=== PATIENT | male | born 1965 | race Caucasian/White ===

== ENCOUNTER 2017-03-16 05:45 | Emergency (ER) | payer MEDICARE, OTHER ==
--- NOTE | 2017-03-16 05:50 | ED.PDOC ---
History of Present Illness - General Chief Complaint: Lower Extremity Injury Stated Complaint: foot pain right Time Seen by Provider: 03/16/17 05:46 Source: patient Exam Limitations: no limitations - History of Present Illness Initial Comments: Julian Castano 51 y/o male stated he been having worsening sharp right foot pain for the last 5 days denies trauma to foot but has history of gout and never had recurrence the last 3 years until 5 days ago. Occurred: other - see hpi Pain - Lower Extremity: moderate: Right Foot Method of Injury: unknown Improving Factors: nothing Worsening Factors: movement Associated Symptoms: pain /swelling right foot Allergies/Adverse Reactions: Allergies Penicillins Allergy (Unverified 05/08/12 14:40) Home Medications: Ambulatory Orders Colchicine 0.6 mg PO BID #14 tab 03/16/17 Prednisone 10 mg PO BID #20 ml 03/16/17 Review of Systems - Review of Systems Constitutional: States: no symptoms reported EENTM: States: no symptoms reported Respiratory: States: no symptoms reported Cardiology: States: no symptoms reported Gastrointestinal/Abdominal: States: no symptoms reported Musculoskeletal: States: see HPI Past Medical History (General) - Patient Medical History Hx Hypertension: Yes Hx Other PMH: Yes - gout Family Medical History - Family History Mother Family History: Unknown Physical Exam - Physical Exam General Appearance: Alert, Anxious, No apparent distress Eyes, Ears, Nose, Throat: normal ENT inspection, pharynx normal Neck: full range of motion, supple Cardiovascular/Respiratory: regular rate, rhythm, no M/R/G, normal peripheral pulses, normal breath sounds Gastrointestinal/Abdominal: non-tender, no organomegaly Back: no vertebral tenderness Leg: no evidence of injury Knee: no evidence of injury Ankle: no evidence of injury Foot: limited ROM, soft tissue tenderness - right foot, swelling - right foot Mental Status: alert, oriented x 3 Skin: normal color, warm/dry Progress - Progress Progress: 03/16/17 06:32 Vital Signs - 8 hr 03/16/17 06:17 Temperature 97.8 F Pulse Rate [ 74 left] Respiratory 18 Rate Blood Pressure 186/115 [left] O2 Sat by Pulse 100 Oximetry - EKG/XRAY/CT XRAY: right foot no fracture Departure - Departure Clinical Impression: Right foot pain, Foot swelling, History of acute gouty arthritis Time of Disposition: 06:52 Disposition: Discharge to Home or Self Care Condition: Good Departure Forms: ED Discharge - Pt. Copy, Patient Portal Self Enrollment Instructions: DI for Gout, Gout, Gout (Alternative Therapy) Referrals: ALEXANDREA YAP [Primary Care Provider] - 1-2 Weeks Prescriptions: Colchicine 0.6 mg PO BID #14 tab Prednisone 10 mg PO BID #20 ml Home Medications: Ambulatory Orders Colchicine 0.6 mg PO BID #14 tab 03/16/17 Prednisone 10 mg PO BID #20 ml 03/16/17 Additional Instructions: Follow up with primary md 03/19/2017 you call for appointment Return to emergency room as needed
[2017-03-16] MEDS ORDERED: DEXAMETHASONE INJ 4 MG/ML VIAL IM ONE (06:03)
[2017-03-16] MEDS ORDERED: KETOROLAC TROMETHAMINE INJ 30 MG/ML VIAL IM ONE (06:03)
[2017-03-16] MEDS ORDERED: HYDROcodone 7.5MG/APAP 325MG 1 EA TAB PO ONE (06:03)
[2017-03-16] MEDS ORDERED: predniSONE 20 MG TAB PO ONE (06:03)
[2017-03-16 06:22] VITALS: BP 186/115; TEMP 97.8; O2SAT 100
[2017-03-16] MEDS ORDERED: HYDROCOD/APAP 7.5/325 (ER DISP) #3 TAB PO ONE (06:49)
--- NOTE | 2017-03-16 07:47 | RAD ---
EXAM DESCRIPTION: Foot,Right 2 Views CLINICAL HISTORY: 51 years Male, pain COMPARISON: None. FINDINGS: 2 views of the right foot were obtained. Diffuse soft tissue swelling is noted without radiopaque foreign body or soft tissue gas. No displaced fracture or malalignment. No focal bone lesion. IMPRESSION: Diffuse soft tissue swelling, otherwise unremarkable exam. If symptoms persist or worsen, 3 view right foot series is recommended. Electronically signed by: Sarwat Morel MD 03/16/2017 7:46 AM CDT
== END 2017-03-16 07:45 | disposition home or self-care (01) ==
LOC: ER 05:45
DX: M79.671 Pain in right foot (principal); M10.9 Gout, unspecified; Z88.0 Allergy status to penicillin
CPT/HCPCS: 73620; J1100; J1885; J7512

== ENCOUNTER → 2017-04-26 | Outpatient (CLI) | payer OTHER | END | disposition home or self-care (01) | LOC: LAB.O 08:52 | PROVIDERS: ATTEND General Practice | DX: M10.1 Lead-induced gout (principal); R06.00 Dyspnea, unspecified; I10 Essential (primary) hypertension ==

== ENCOUNTER → 2017-11-01 | Outpatient (CLI) | payer MEDICARE, OTHER | LOC: LAB.O 08:06 | PROVIDERS: ATTEND General Practice | DX: M10.9 Gout, unspecified (principal); I12.9 Hypertensive chronic kidney disease with stage 1 through stage 4 chronic kidney disease, or unspecified chronic kidney disease; N18.3 Chronic kidney disease, stage 3 (moderate); I25.10 Atherosclerotic heart disease of native coronary artery without angina pectoris; E66.01 Morbid (severe) obesity due to excess calories ==

== ENCOUNTER → 2017-11-09 | Outpatient (CLI) | payer MEDICARE, OTHER ==
--- NOTE | 2017-11-11 09:11 | US ---
EXAM DESCRIPTION: Renal: Ultrasound. CLINICAL HISTORY: Acute kidney failure COMPARISON: Bilateral renal arterial Doppler evaluation on the same visit. TECHNIQUE: Transcutaneous scanning: Two-dimensional and Doppler modes. FINDINGS: Right kidney measures 9.2 x 4.1 x 3.9 cm; mid-renal cortical thickness 12 mm. . Normal echogenicity. No hydronephrosis No echogenic stones. Minimally lobulated contour of the kidney with no perinephric fluid. Normal vascularity. Proximal ureter not visualized. Left kidney measures 10.3 x 4.4 x 4.5 cm; mid-renal cortical thickness 13 mm.. echogenicity. No hydronephrosis. No echogenic stones. Minimally lobulated contour of the kidney with no perinephric fluid. Normal vascularity.. Proximal ureter not visualized. visualized. Urinary bladder not visualized. Abdominal aorta diameter not measured. IMPRESSION: Bilateral kidneys with thin cortex, capsular lobulations, but normal echogenicity. This could be consistent with clinical diagnosis. No hydronephrosis or perinephric fluid. No large echogenic stones. Ureters were not visualized. Electronically signed by: Augustine Wong MD 11/11/2017 9:09 AM CDT
== END ==
LOC: LAB.O 09:01
PROVIDERS: ATTEND Internal Medicine Nephrology
DX: N18.4 Chronic kidney disease, stage 4 (severe) (principal)

== ENCOUNTER 2018-07-09 02:14 | Emergency (ER) | payer MEDICARE, OTHER ==
[2018-07-09 02:30] VITALS: TEMP 97.1
[2018-07-09] MEDS ORDERED: ONDANSETRON INJ 4 MG/2 ML VIAL IV ONE (02:34)
--- NOTE | 2018-07-09 02:41 | ED.PDOC ---
History of Present Illness - General Chief Complaint: GI Problem Stated Complaint: vomiting,diarrhea, chest pain Time Seen by Provider: 07/09/18 02:28 Source: patient Exam Limitations: no limitations - History of Present Illness Initial Comments: Patient presents complaining of N/V/D since last evening about 9 huors ago. He said he had a little diarrhea first, the N/V started quite frequently. His diarrhea has increased in frequency. He has "cramping" abdominal pain that gets better just after vomiting or having a bowel movement. The diarrhea is non- bloody. The patient is unable to hold down fluids at this time. His [id number], whom he says that he sees every day, has the same symptoms. No other complaints. Timing/Duration: other - 9 hours Severity: moderate Improving Factors: nothing Worsening Factors: eating Associated Symptoms: other - as in HPI Allergies/Adverse Reactions: Allergies Penicillins Allergy (Unverified 05/08/12 14:40) Home Medications: Ambulatory Orders Carvedilol 07/09/18 Hydrocodone-Acetaminophen [Hydrocodone Bitartrate/AC 10-325 mg] 1 tab PO 07/09/18 Lisinopril 07/09/18 Ondansetron [Zofran Odt] 4 mg PO Q6HRS #12 tab 07/09/18 Sertraline HCl 07/09/18 Review of Systems - Review of Systems Constitutional: States: no symptoms reported EENTM: States: no symptoms reported Respiratory: States: no symptoms reported Cardiology: States: no symptoms reported Gastrointestinal/Abdominal: States: see HPI Genitourinary: States: no symptoms reported Musculoskeletal: States: no symptoms reported Skin: States: no symptoms reported Neurological: States: no symptoms reported Endocrine: States: no symptoms reported Hematologic/Lymphatic: States: no symptoms reported Past Medical History (General) - Patient Medical History Hx Asthma: Yes Hx Cardiac Disorders: No Hx Hypertension: Yes Hx Diabetes: No Hx Renal Disease: - PCP "testing kidneys" Hx MRSA: Yes - gout - Vaccination History Hx Tetanus, Diphtheria Vaccination: No Hx Influenza Vaccination: No Hx Pneumococcal Vaccination: No - Social History Hx Tobacco Use: Yes Hx Alcohol Use: No Family Medical History - Family History Mother Family History: Unknown Physical Exam - Physical Exam General Appearance: Alert Eye Exam: bilateral normal Ears, Nose, Throat: normal ENT inspection Neck: non-tender, full range of motion, supple Respiratory: lungs clear, normal breath sounds Cardiovascular/Chest: normal peripheral pulses, regular rate, rhythm Gastrointestinal/Abdominal: normal bowel sounds, non tender, soft, no organomegaly Back Exam: no CVA tenderness Neurologic: alert, normal mood/affect, oriented x 3 Skin Exam: normal color Lymphatic: no adenopathy Progress - Progress Progress: 07/09/18 06:30 Patient's N/V resolved after Zofran IV. His systolic blood pressure was 222 upon arrival and was treated with clonidine 0.1 mg po x two doses. He said that he had an appointment with Dr. Keller regarding his "kidneys" and possible blood pressure issues. He was sent with RX for Zofran. E.R. warnings given. Care instructions given. Questions were elicited and answered. The patient voiced understanding and agreement with the plan. Departure - Departure Clinical Impression: Nausea & vomiting, Gastroenteritis Disposition: Discharge to Home or Self Care Condition: Good Departure Forms: ED Discharge - Pt. Copy, Patient Portal Self Enrollment Instructions: Viral Gastroenteritis, Adult (DC) Diet: resume usual diet, other - increase oral fluids Activity: increase activity as tolerated Referrals: Wilfrido Santoyo MD [Primary Care Provider] - 1-2 Weeks Prescriptions: Ondansetron [Zofran Odt] 4 mg PO Q6HRS #12 tab Home Medications: Ambulatory Orders Carvedilol 07/09/18 Hydrocodone-Acetaminophen [Hydrocodone Bitartrate/AC 10-325 mg] 1 tab PO 07/09/18 Lisinopril 07/09/18 Ondansetron [Zofran Odt] 4 mg PO Q6HRS #12 tab 07/09/18 Sertraline HCl 07/09/18 Additional Instructions: Increase oral fluids. Take medication as prescribed for nausea and vomiting. You may try Immodium A-D as directed for diarrhea. Return to your normal diet as tolerated. Return to the E.R. for symptoms that last more than 72 hours or for increasing abdominal pain.
[2018-07-09] MEDS ORDERED: cloNIDine HCL 0.1 MG TAB ONE (03:34)
[2018-07-09] MEDS ORDERED: cloNIDine HCL 0.1 MG TAB PO ONE ×2 (03:35→04:13)
[2018-07-09 06:45] VITALS: BP 186/124; O2SAT 98
== END 2018-07-09 06:45 | disposition home or self-care (01) ==
LOC: ER 02:14
DX: K52.9 Noninfective gastroenteritis and colitis, unspecified (principal); J45.909 Unspecified asthma, uncomplicated; I10 Essential (primary) hypertension; Z87.891 Personal history of nicotine dependence; Z88.0 Allergy status to penicillin
CPT/HCPCS: 80053; 80307; 81001; 83690; 85025; J2405

== ENCOUNTER → 2018-09-03 | Outpatient (CLI) | payer MEDICARE, MEDICAID | LOC: LAB.O 09:15 | PROVIDERS: ATTEND General Practice | DX: Z00.00 Encounter for general adult medical examination without abnormal findings (principal) ==

== ENCOUNTER 2018-12-30 | Emergency (ER) | payer MEDICARE, MEDICAID | END 2018-12-30 10:14 | disposition left against medical advice (07) ==